=== PATIENT | female | born 1985 | race Caucasian/White ===

== ENCOUNTER → 2023-06-03 | Outpatient (CLI) | payer SELFPAY | PROVIDERS: Referring Provider Family Medicine; Visit Provider Family Medicine | DX: Z23 Encounter for immunization (principal) | CPT/HCPCS: 90471; 90686 ==

== ENCOUNTER → 2023-11-02 07:16 | Outpatient (CLI) | payer OTHER, SELFPAY ==
--- NOTE | 2023-11-02 07:18 | DI.RAD.S_ITS ---
PROCEDURE: XR LUMBAR SPINE MIN 4V INDICATIONS: BACK PAIN TECHNIQUE: 5 views of the lumbar spine were acquired, including bilateral oblique views. COMPARISON: None. FINDINGS: Bones: 5 nonrib-bearing vertebrae are present. There is normal bony alignment. No vertebral body compression fractures. No suspicious bony lesions. Moderate disc height loss at L4-5. Mild disc height loss at L5-S1. Soft tissues: Overlying bowel gas pattern is normal. No suspicious soft tissue calcifications. Oblique images: No pars defects. IMPRESSION: [id number] lower lumbar degenerative disc disease. Dictated by: Meet Jacobsen M.D. on 11/02/2023 at 8:21 Approved by: Meet Jacobsen M.D. on 11/02/2023 at 8:27
== END ==
PROVIDERS: Referring Provider Physical Medicine & Rehabilitation; Visit Provider Physical Medicine & Rehabilitation
DX: M51.36 Other intervertebral disc degeneration, lumbar region (principal); M51.37 Other intervertebral disc degeneration, lumbosacral region; M54.9 Dorsalgia, unspecified
CPT/HCPCS: 72110

== ENCOUNTER → 2024-06-08 | Outpatient (CLI) | payer OTHER, SELFPAY | PROVIDERS: PCP Registered Nurse; Referring Provider Internal Medicine; Visit Provider Internal Medicine | DX: Z23 Encounter for immunization (principal) | CPT/HCPCS: 90471; 90656 ==

== ENCOUNTER → 2025-01-18 13:29 | Outpatient (CLI) | payer OTHER, SELFPAY ==
--- NOTE | 2025-01-18 13:30 | DI.MG.S_ITS ---
MM screening mammo BI: 01/18/2025. BI-RADS: 1 CLINICAL: 39-year old female for bilateral screening mammogram. Tyrer-Cuzick lifetime risk of 23.7%. No personal or first-degree family history of breast cancer. Current reported family history of breast cancer: maternal grandmother, maternal aunt and paternal aunt. PRIOR EXAMS Outside priors 05/08/2018. MAMMOGRAPHY TECHNIQUE: 2D and 3D (tomosynthesis) digital mammographic views obtained, with additional images as needed for full coverage. Current study was also evaluated with a Computer Aided Detection (CAD) system. DENSITY C. The breasts are heterogeneously dense, which may obscure small masses. MAMMOGRAPHY FINDINGS Bilateral: No suspicious mass, asymmetry, microcalcification, or other abnormality seen. IMPRESSION: * No evidence of malignancy. RECOMMENDATIONS Bilateral * According to the Tyrer-Cuzick Risk Assessment Model, based on the information provided your patient has a greater than 20% lifetime risk for developing breast cancer. Consider supplemental screening with breast MRI and participation in a high risk screening program. * Annual screening mammography. OVERALL ASSESSMENT CATEGORY BI-RADS-1: Negative. The [employer] recommends annual screening mammography beginning at age 40 for women with average risk of breast cancer. ELECTRONICALLY SIGNED: Ketty Palmer M.D. on 01/21/2025 at 08:04:23 AM PT Interpreting Station ID: [id number]
== END ==
PROVIDERS: PCP Registered Nurse; Referring Provider Registered Nurse; Visit Provider Registered Nurse
DX: Z12.31 Encounter for screening mammogram for malignant neoplasm of breast (principal); Z80.3 Family history of malignant neoplasm of breast; R92.333 Mammographic heterogeneous density, bilateral breasts
CPT/HCPCS: 77063; 77067

== ENCOUNTER → 2025-01-28 13:13 | Outpatient (CLI) | payer OTHER, SELFPAY ==
--- NOTE | 2025-01-28 13:26 | DI.RAD.S_ITS ---
PROCEDURE: FL ARTHROGRAM SHOULDER LT fluoroscopic guided INDICATIONS: LEFT SHOULDER PAIN COMPARISON: None. TECHNIQUE: The indications, alternatives, benefits, risks, and complications of the procedure were explained to the patient. Written informed consent was obtained and placed in the chart. The shoulder was examined fluoroscopically and a site for needle placement chosen for entry into the glenohumeral joint from an anterior approach. The skin was prepped and draped in a sterile fashion, and 1% lidocaine infiltrated from skin down to joint capsule. A spinal needle was inserted into the glenohumeral joint, and a small amount of iodinated contrast media injected to confirm intra-articular placement of the needle tip. This was followed by approximately 9 mL dilute solution of a gadolinium containing MR contrast agent. The needle was removed and a dressing was applied. The patient was given postprocedural instructions and sent to the MR suite for MR imaging. FINDINGS: A single fluoroscopic spot image demonstrates intra-articular location of injected iodinated contrast. IMPRESSION: Successful fluoroscopically guided administration of dilute Gadolinium solution into the shoulder joint for MR arthrogram. Dictated by: Jesús Dumont M.D. on 01/28/2025 at 15:20 Approved by: Jesús Dumont M.D. on 01/28/2025 at 15:24
--- NOTE | 2025-01-28 13:53 | DI.MRI.S_ITS ---
PROCEDURE: MR SHOULDER LT W CON INDICATIONS: Internal derangement of lt shoulder TECHNIQUE: After the administration of 12 mL of dilute intra-articular Gadolinium contrast, oblique coronal T1 and T2 spin echo with fat saturation, oblique sagittal T1 spin echo with and without fat saturation, oblique sagittal T2 fast spin echo with fat saturation, axial T1 spin echo with fat saturation through the shoulder. COMPARISON: None. FINDINGS: Image quality: Excellent. Rotator cuff: The supraspinatus and infraspinatus are unremarkable. The teres minor is unremarkable. The subscapularis is unremarkable. No muscle edema or fatty atrophy. Bones and bursae: No significant degenerative changes of the acromioclavicular joint. Type 1 acromion. No os acromiale. No significant subacromial/subdeltoid bursitis. No contrast extravasating into the subacromial/subdeltoid bursa. Minimal subchondral cystic changes at the posterior greater tuberosity, reactive. No acute fracture. No focal chondral defect of the glenohumeral articulation. Capsule and soft tissues: The labrum is intact. The extra-articular, and the intra-articular biceps tendon are intact. No intra-articular body. IMPRESSION: 1. Minimal subchondral cystic changes at the posterior greater tuberosity, reactive. Otherwise unremarkable exam. Dictated by: Loni Neumann M.D. on 01/29/2025 at 14:49 Approved by: Loni Neumann M.D. on 01/29/2025 at 14:57
[2025-01-28] MEDS: SODIUM CHLORIDE 0.9 % 20 ML VIAL IV (15:45)
[2025-01-28] MEDS: LIDOCAINE 1% 20 ML INJ (15:45)
== END ==
PROVIDERS: PCP Registered Nurse; Referring Provider Family Medicine Sports Medicine; Visit Provider Family Medicine Sports Medicine
DX: M24.812 Other specific joint derangements of left shoulder, not elsewhere classified (principal)
CPT/HCPCS: 23350; 73040; 73222; A9579; Q9967

== ENCOUNTER → 2025-08-02 12:51 | Outpatient (CLI) | payer OTHER, SELFPAY ==
[2025-08-02 14:44] LABS: Follicle Stimulating Hormone 3.84 mIU/mL
== END ==
PROVIDERS: PCP Registered Nurse; Referring Provider Registered Nurse; Visit Provider Registered Nurse
DX: N92.6 Irregular menstruation, unspecified (principal)
CPT/HCPCS: 36415; 83001; 83002; 84146; 84403